=== PATIENT | female | born 1935 | race Caucasian/White ===

== ENCOUNTER 2016-12-25 00:13 | Observation (INO) ==
[2016-12-25] MEDS ORDERED: ASPIRIN 325 MG TABLET PO STA (00:34)
[2016-12-25] MEDS ORDERED: ASPIRIN 325 MG TABLET ONE (00:46)
[2016-12-25 01:11] LABS: Calcium 8.7 MG/DL (8.5-10.1); Osmolality,Calculated 285.3 MOS/KG (273-304); Potassium 4.3 MMOL/L (3.5-5.1)
[2016-12-25 01:16] LABS: Basophils % 0.3 % (0.0-0.8); Eosinophils # 0.2 10*3/uL (0.0-0.87); Eosinophils % 1.9 % (0.00-10.9); Hematocrit 35.3 VOL% (35.7-47.0); Immature Granulocytes % 0.3 %; Immature Granulocytes Absolute 0.03 #; Lymphocytes # 1.3 10*3/uL (1.4-4.0); Lymphocytes % 14.2 % (21.3-54.2); Mean Corpuscular Hemoglobin 31 PG (27-34); Mean Corpuscular Volume 91.9 FL (87-102); Mean Platelet Volume 10.4 FL (9.6-12.0); Monocytes # 1.2 10*3/uL (0.11-0.8); Monocytes % 13.4 % (1.7-12.7); Neutrophils # 6.2 10*3/uL (1.4-7.4); Neutrophils % 69.9 % (38.7-73.9); Platelet Count 231 T/CUMM (130-400); Red Blood Count 3.84 MC/CUMM (3.8-5.5); Red Cell Distribution Width 13.2 % (9.3-17.3); White Blood Count 8.9 T/CUMM (4-12)
--- NOTE | 2016-12-25 01:40 | Emergency Department Note ---
IMary Lou Mantricia, am scribing for, and in the presence of, Laron Restrepo MD 00:42. ILauro Kevin Lee, MD, personally performed the services described in this documentation, ascribed by Jean-Paul Barreto in my presence, and it is both accurate and complete . Arrival - Arrival Chief Complaint: Chest Pain Stated Complaint: chest pain ED Nursing Triage Note: pt presented to triage via w/c with c/o CP under L breast x 1 day. pt states worse when breathing in or coughing. rates 01/28 Mode of Arrival: Wheelchair Limitations: No Limitations Source: Patient Time Seen by Provider: 12/25/16 00:26 - History of Present Illness HPI Narrative: Pt is an 81 y/o white female arriving to ED via wheelchair with c/o left sided chest pain that onset today after lunch. Pt reports that she called her daughter when she experienced the pain because her daughter just had a pacemaker placed a few weeks ago. She reports that the pain worsens with deep breaths and while laying down and radiates to her neck. Pt denies having any recent falls to cause any injuries. Pt has a FHx of heart problems. She does not have a sat act instructor but states that she would like to be referred to her daughter's sat act instructor. Pt's PCP is Dr. Cedillo. At time of exam pt's heart rate is 70 with a blood pressure of 153/72. She does confirm that she is in pain at time of exam. No other complaints were reported to ED. Onset (ago): hour(s) Consistency: constant Severity: mild Date of Last Menstrual Period: hyst Allergies/Adverse Reactions: Allergies Allergy/AdvReac Type Severity Reaction Status Date / Time Sulfa (Sulfonamide Allergy RASH Verified 12/25/16 00:22 Antibiotics) Home Medications: Home Medications Medication Instructions Recorded Confirmed Type Cetirizine HCl [Cetirizine Tab] 1 tablet PO DAILY 11/14/14 12/25/16 History Gabapentin 2 tablet PO TID 11/14/14 12/25/16 History Potassium Chloride Cap/Tab [K Dur] 10 meq PO BID 11/14/14 12/25/16 History Aspirin [Ecotrin] 1 tablet PO DAILY 04/29/15 12/25/16 History Atorvastatin [Lipitor] 20 mg PO DAILY 04/29/15 12/25/16 History Citalopram [CeleXA] 1 tablet PO DAILY 04/29/15 12/25/16 History Gabapentin 1 tablet PO TID 04/29/15 12/25/16 History Levothyroxine Tab [Synthroid Tab] 37.5 mcg PO DAILY@0700 04/29/15 12/25/16 History Omeprazole [Prilosec] 40 mg PO DAILY 04/29/15 12/25/16 History traZODone [Desyrel] 50 mg PO BEDTIME 04/29/15 12/25/16 History Review of System - Review of System 12 point system: reviewed and no additional remarkable complaints except as stated - Review of System Constitutional: Absent: chills, diaphoresis, fever Eyes: Absent: pain Respiratory: Absent: cough Cardiovascular: Present: chest pain. Absent: palpitations, dyspnea on exertion Gastrointestinal: Absent: abdominal pain, nausea, vomiting, diarrhea Musculoskeletal: Absent: arm pain, back pain, leg pain, neck pain Medical,Surgical,& Family Hx - Medical History Psychological: History of: Depression Endocrine: History of: Thyroid Disorder Gastrointestinal: History of: Clostridium Difficile, GI Problems - Surgical History Cardiac Surgeries: Patient Denies: Cardiac Catheterization Thoracic Surgeries: Patient denies;: Organ Transplant HEENT Surgeries: Surgical HX of: Tonsilectomy & Adenoidectomy Abdominal Surgeries: Surgical HX of: Abdominal Surgery (LYSIS OF ADHESIONS) Reproductive Surgeries: Surgical HX of;: Hysterectomy Orthopedic Surgeries: Surgical HX of;: Orthopedic Surgery (BROKE LEG AND HAD PINS AND PLATE PLACED) - Family History Family History: Reports;: Family Cancer, Family Heart Disease, Family Stroke - Social History Smoking Status: Never smoker Frequency of Alcohol Use: None Type of Drug Use: None Exam Vital Signs: Vital Signs Temperature 97.6 F 12/25/16 00:30 Pulse Rate 66 12/25/16 00:45 Respiratory Rate 20 12/25/16 00:45 Blood Pressure 135/66 12/25/16 00:45 O2 Sat by Pulse Oximetry 97 12/25/16 00:45 - General General appearance: alert, in no apparent distress - Head Head exam: Present: atraumatic, normocephalic - Eye Eye exam: Present: normal appearance, PERRL, EOMI - ENT ENT exam: Present: normal exam - Neck Neck exam: Present: normal inspection, full ROM - Chest Chest inspection: Present: normal inspection, symmetric chest wall rise. Absent : tenderness, rash - Respiratory Respiratory exam: Present: normal lung sounds bilaterally - Cardiovascular Cardiovascular exam: Present: regular rate, normal rhythm, normal heart sounds - Abdominal Exam Abdominal exam: Present: soft. Absent: distention, tenderness, guarding, rebound - Extremities Exam Extremities exam: Present: normal inspection, full ROM - Neurological Exam Neurological exam: Present: alert, oriented X3, CN II-XII intact - Psychiatric Psychiatric exam: Present: normal affect, normal mood - Skin Skin exam: Present: warm, dry, intact, normal color Results - Labs CBC & BMP: 12/25/16 00:40 12/25/16 00:40 Lab Results: I have reviewed the patients labs - Diagnostic Findings Procedure: Chest x-ray: image reviewed by me (? small L pleural effusion) Disposition Clinical Impression: Chest pain Case discussed with: patient Disposition: Still a Patient Condition: Stable
[2016-12-25] MEDS ORDERED: ACETAMINOPHEN 325 MG TABLET PO PRN (02:02)
[2016-12-25] MEDS ORDERED: ONDANSETRON 4 MG/2 ML VIAL IV PRN (02:02)
[2016-12-25] MEDS ORDERED: ZALEPLON 5 MG CAPSULE PO PRN (02:02)
[2016-12-25] MEDS ORDERED: MORPHINE 2 MG/1 ML SYRINGE IV PRN (02:02)
--- NOTE | 2016-12-25 02:07 | Hospitalist History & Physical ---
Assessment and Plan (1) Chest pain Status: Acute Assessment and plan: Admit for observation. Repeat cardiac enzymes. Consult cardiology. Toradol for chest wall pain. Current Visit: Yes Qualifiers: Chest pain type: unspecified Qualified Code(s): R07.9 - Chest pain, unspecified History of Present Illness Chief complaint: chest pain History of present illness: Ms. Alberto is a 81 year old female presented to the emergency department today complaining of left-sided chest pain. Pain began 1 day ago. It is sharp in nature. It is located under the left breast. It radiated 8 out of 10. It takes her breath away. The pain does not radiate to any other location. There is no associated nausea or vomiting. There is no neck pain or arm pain. She has not had anything like this before. She denies any fall or trauma. The pain is localized under the left breast and is worsened with deep inspiration. Home Medications Medication Instructions Recorded Confirmed Type Cetirizine HCl [Cetirizine Tab] 1 tablet PO DAILY 11/14/14 12/25/16 History Gabapentin 2 tablet PO TID 11/14/14 12/25/16 History Potassium Chloride Cap/Tab [K Dur] 10 meq PO BID 11/14/14 12/25/16 History Aspirin [Ecotrin] 1 tablet PO DAILY 04/29/15 12/25/16 History Atorvastatin [Lipitor] 20 mg PO DAILY 04/29/15 12/25/16 History Citalopram [CeleXA] 1 tablet PO DAILY 04/29/15 12/25/16 History Gabapentin 1 tablet PO TID 04/29/15 12/25/16 History Levothyroxine Tab [Synthroid Tab] 37.5 mcg PO DAILY@0700 04/29/15 12/25/16 History Omeprazole [Prilosec] 40 mg PO DAILY 04/29/15 12/25/16 History traZODone [Desyrel] 50 mg PO BEDTIME 04/29/15 12/25/16 History Allergies Allergy/AdvReac Type Severity Reaction Status Date / Time Sulfa (Sulfonamide Allergy RASH Verified 12/25/16 00:22 Antibiotics) Medical,Surgical,& Family Hx - Medical History Psychological: History of: Depression Endocrine: History of: Thyroid Disorder Gastrointestinal: History of: Clostridium Difficile, GI Problems - Surgical History Cardiac Surgeries: Patient Denies: Cardiac Catheterization Thoracic Surgeries: Patient denies;: Organ Transplant HEENT Surgeries: Surgical HX of: Tonsilectomy & Adenoidectomy Abdominal Surgeries: Surgical HX of: Abdominal Surgery (LYSIS OF ADHESIONS) Reproductive Surgeries: Surgical HX of;: Hysterectomy Orthopedic Surgeries: Surgical HX of;: Orthopedic Surgery (BROKE LEG AND HAD PINS AND PLATE PLACED) - Family History Family History: Reports;: Family Cancer, Family Heart Disease, Family Stroke - Social History Smoking Status: Never smoker Frequency of Alcohol Use: None Type of Drug Use: None Marital Status: Lives With:: Alone Functional capacity: independent ambulation 12 point system: reviewed and no additional remarkable complaints except as stated Exam - Constitutional Vitals: Period Temp Pulse Resp BP Sys/Yao Pulse Ox Last 24 Hr 97.6 F-97.6 F 65-72 16-20 135-153/54-72 97-99 Exam: Constitutional System: No distress. No tremulousness. Head: Normocephalic, atraumatic. Ears, Nose and Throat System: No pain or tenderness. No epistaxis or discharge Eyes System: Pupils equal, round, and reactive. Extraocular muscles intact. Neck: Supple, without adenopathy, No jugular venous distention. No thyromegaly, neck mass, or prior surgery apparent. Respiratory System: Chest clear to auscultation. Pain reproducible with deep inspiration Cardiovascular System: Heart with regular rate and rhythm. Systolic ejection murmur noted. GI System: Abdomen soft, nontender. Normo active bowel sounds present. Musculoskeletal System: limbs with no pedal edema. Full distal pulses. Neurological System: No discernable sensory deficit. No aphasia Psychiatric System: Conversation is rational Results - Labs CBC & BMP: 12/25/16 00:40 12/25/16 00:40 Lab Results: I have reviewed the past 24 hour labs - Diagnostic Findings Procedure: Chest x-ray: image reviewed by me
--- NOTE | 2016-12-25 02:29 | EKG Report ---
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
[2016-12-25] MEDS ORDERED: MORPHINE 2 MG/1 ML SYRINGE IV STA (02:33)
[2016-12-25] MEDS ORDERED: ONDANSETRON 4 MG/2 ML VIAL IV STA (02:33)
[2016-12-25] MEDS ORDERED: KETOROLAC 30 MG/1 ML VIAL IV ONE (02:55)
[2016-12-25 05:46] LABS: Risk Ratio 2.46; Thyroid Stimulating Hormone 1.64 uIU/ml (0.358-3.74); VLDL CHOLESTEROL 10.4 MG/DL
[2016-12-25 06:15] LABS: Troponin I Only 0.021 NG/ML (0.00-0.045)
[2016-12-25] MEDS: LEVOTHYROXINE 75 MCG TABLET PO SCH (06:26)
--- NOTE | 2016-12-25 07:10 | XRay Report ---
2 view chest. Indication: Chest pain. Comparison: November 14, 2014. The heart is upper limits of normal in size. There is uncoiling of the thoracic aorta, which often indicates chronic hypertension. There is a moderate hiatal hernia. The pulmonary vasculature is normal. There is atelectasis and pleural effusion at the left lung base. The right lung is clear. The osseous structures are diffusely demineralized. There is exaggerated kyphosis of the thoracic spine. There is scoliosis and degenerative change of the spinal column. Impression: 1. Left basilar atelectasis and pleural effusion. 2. Moderate hiatal hernia. PROCEDURE INTERPRETED AT [facility] DEPARTMENT OF RADIOLOGY Final Report Signed by: Dr. Mckenna Alatorre
--- NOTE | 2016-12-25 08:08 | EKG Report ---
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
[2016-12-25 08:51] LABS: Troponin I Only 0.028 NG/ML (0.00-0.045)
--- NOTE | 2016-12-25 08:52 | Cardiology Consult Note ---
Assessment and Plan - Time spent with patient Time spent with patient: Greater than 30 minutes (1) Dyslipidemia Status: Chronic Assessment and plan: SEE PLAN OF CARE LISTED BELOW Current Visit: Yes (2) Edema Status: Chronic Assessment and plan: SEE PLAN OF CARE LISTED BELOW Current Visit: Yes (3) Chest pain Status: Acute Assessment and plan: SEE PLAN OF CARE LISTED BELOW Current Visit: Yes Qualifiers: Chest pain type: unspecified Qualified Code(s): R07.9 - Chest pain, unspecified History of Present Illness - Data of Consult Patient: new to practice Consult date: 12/25/16 Requesting Physician: Leander King - Consult Narrative Reason for consult: chest pain History of present illness: SHOP LEAD: (NEW) DR. GRESHAM Ms. Alberto, 81WF, with risk factors significant for: advanced age, dyslipidemia and sedentary lifestyle. Admitted December 25, 2016 with complaints of left-sided chest pain. Chest discomfort began Sunday afternoon, located under the left breast and left rib cage. There is no radiation, nausea, vomiting or diaphoresis associated with the chest discomfort. It is described as "sharp" and occurs when taking a deep breath and/or palpating the left rib cage area. Rates discomfort at its worst as a 7 on a scale of 1-10. She has had no recent injuries or falls. Cardiac biomarkers are negative, EKG reveals normal sinus rhythm. Chest x-ray revealed left basilar atelectasis and pleural effusion. Denies recent fevers, chills or cough. Patient has been fairly active into the past 4 years. 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 Since that time, she has found herself to be very deconditioned and feels as if she is finally beginning to improve. She was picking up pecans this season and can do so without having chest pain, heaviness or tightness. Echocardiogram has been ordered. Will continue to cycle cardiac biomarkers, monitor telemetry. Adding d-dimer to labs this morning. Will add venous ultrasound to lower extremities as she occasionally has left ankle swelling and mild tenderness to palpation today. Treat her musculoskeletal chest pain with NSAIDs. Add incentive spirometry. Given her advanced age, she may need to be considered for outpatient stress testing at discharge. Will further discuss with Dr. Gresham and await additional recommendations. ASSESSMENT/PLAN: 1. CHEST PAIN - Chest pain is reproducible with deep breath, movement and palpation. Will treat with NSAIDs, check echocardiogram, d-dimer and encourage incentive spirometry. Follow chest x-ray. 2. DYSLIPIDEMIA - LDL 77. With the stated risk factors listed above, she is at goal. Continue Atorvastatin 3. EDEMA - venous US BLE extremity today. CC: Leander King MD - Home Medications and Allergies Home Medications: Home Medications Medication Instructions Recorded Confirmed Type Cetirizine HCl [Cetirizine Tab] 10 mg PO DAILY 11/14/14 12/25/16 History Potassium Chloride Cap/Tab [K Dur] 10 meq PO BID 11/14/14 12/25/16 History Aspirin [Ecotrin] 81 mg PO DAILY 04/29/15 12/25/16 History Atorvastatin [Lipitor] 20 mg PO DAILY 04/29/15 12/25/16 History Citalopram [CeleXA] 20 mg PO DAILY 04/29/15 12/25/16 History Gabapentin 300 mg PO TID 04/29/15 12/25/16 History Levothyroxine Tab [Synthroid Tab] 37.5 mcg PO DAILY@0700 04/29/15 12/25/16 History Omeprazole [Prilosec] 40 mg PO DAILY 04/29/15 12/25/16 History traZODone [Desyrel] 50 mg PO BEDTIME 04/29/15 12/25/16 History Allergies/Adverse Reactions: Allergies Allergy/AdvReac Type Severity Reaction Status Date / Time Sulfa (Sulfonamide Allergy RASH Verified 12/25/16 00:22 Antibiotics) Review of systems: REVIEW OF SYSTEMS: - Constitutional Constitutional: Absent: syncope, anorexia, night sweats - EENT Eyes: Absent: blurry vision, loss of vision, diplopia Ears: Absent: decreased hearing, ear pain, ear discharge - Cardiovascular Cardiovascular: Present: chest pain with deep breath, movement and palpation. Occasional left lower extremity swelling, primarily around the ankle. Denies dyspnea on exertion, palpitations. - Respiratory Respiratory: Denies: BOUCHER, cough. Absent: wheezing, hemoptysis, change in phlegm color - Gastrointestinal Gastrointestinal: Denies: constipation. Absent: abdominal pain, hematemesis, hematochezia, melena, change in bowel habits, nausea - Genitourinary Genitourinary: Absent: difficulty urinating, dysuria, urinary hesitancy, flank pain - Musculoskeletal Musculoskeletal: Present: back pain Absent: joint swelling, muscle cramps, muscle weakness - Neurological Neurological: Present: Poor gait with frequent falls due to left knee pain. Absent: dizziness, hemiparesis - Psychiatric Psychiatric: Absent: anxiety, depression, difficulty concentrating - Endocrine Endocrine: Present: fatigue. Absent: cold intolerance, heat intolerance, polyuria, polyphagia, polydipsia - Hematologic/Lymphatic Hematologic/Lymphatic: Present: easy bruising. Absent: easy bleeding -Integumentary Integumentary: Absent: lesions, rashes, skin breakdown Medical,Surgical,& Family Hx - Medical History Cardio: No history of: Cardiac Dysrhythmia, CAD, Hypertension, [place], Cardiovascular Problems Psychological: History of: Depression Endocrine: History of: Thyroid Disorder Gastrointestinal: History of: Clostridium Difficile, GI Problems - Surgical History Cardiac Surgeries: Patient Denies: Cardiac Catheterization Thoracic Surgeries: Patient denies;: Organ Transplant HEENT Surgeries: Surgical HX of: Tonsilectomy & Adenoidectomy Abdominal Surgeries: Surgical HX of: Abdominal Surgery (LYSIS OF ADHESIONS) Reproductive Surgeries: Surgical HX of;: Hysterectomy Orthopedic Surgeries: Surgical HX of;: Orthopedic Surgery (BROKE LEG AND HAD PINS AND PLATE PLACED) - Family History Family History: Reports;: Family Cancer (mother-breast CA, lung CA), Family Heart Disease, Family Stroke - Social History Smoking Status: Never smoker Have you smoked in the last 12 months: No Frequency of Alcohol Use: None Type of Drug Use: None Marital Status: Lives With:: Alone Functional capacity: independent ambulation Physical Examination Vital Signs Temp Pulse Resp BP Pulse Ox 97.6 F 72 16 141/54 97 12/25/16 00:18 12/25/16 00:18 12/25/16 00:18 12/25/16 00:18 12/25/16 00:18 Exam: General: [Appears well with no apparent distress.] [Pleasant and cooperative. ] [Appears comfortable.] HEENT: [PERRL, normocephalic, atraumatic. Mucous membranes moist. No jaundice noted. Conjunctiva moist and clear, sclerae anicteric] Neck: No JVD/HJR, no thyromegaly or lymphadenopathy noted. No carotid bruit appreciated Cardiac: [Regular rate and rhythm.] [No obvious murmur rub or gallop.] Left chest and flank with significant pain to light palpation. Lungs: [Clear to auscultation without accessory muscle use to assist the respiratory pattern.] Using oxygen intermittently Abdomen: Soft, bowel sounds normoactive. Nontender and nondistended. No abdominal bruit or thrill noted. No masses noted. Musculoskeletal: No fluid collection. Decreased range of motion is noted. Extremities: No clubbing, cyanosis noted. [ Upper extremity pulses 2+. Lower extremity pulses 2+. Tenderness to touch left lower extremity primarily in the ankle region. Trace edema left ankle. Capillary refill less than 3 seconds. Skin: No unusual lesions or rashes. No skin breakdown appreciated. Neuro: Awake, alert and oriented 3. Moves all extremities well without hemiparesis or paralysis. No essential tremor is appreciated. Result/EKG - Labs CBC & BMP: 12/25/16 00:40 12/25/16 00:40 Lab Results: I have reviewed the past 24 hour labs Labs: Laboratory Results - last 24 hr 12/25/16 12/25/16 12/25/16 00:40 00:40 00:40 WBC 8.9 RBC 3.84 Hgb 12.0 Hct 35.3 L MCV 91.9 MCH 31 MCHC 34.0 RDW 13.2 Plt Count 231 MPV 10.4 Neut % (Auto) 69.9 Lymph % (Auto) 14.2 L [place] % (Auto) 13.4 H Eos % (Auto) 1.9 Baso % (Auto) 0.3 Neut # (Auto) 6.2 Lymph # (Auto) 1.3 L [place] # (Auto) 1.2 H Eos # (Auto) 0.2 Baso # (Auto) 0.0 Immature Gran % 0.3 Nucleated RBC % 0.0 Immature Gran # 0.03 Nucleated RBCs # 0.00 Immature Plt Fraction 0.0 D-Dimer, Quantitative Sodium 141 Potassium 4.3 Chloride 109 H Carbon Dioxide 28 Anion Gap 8.3 BUN 23 H Creatinine 0.80 GFR Calculation 65 BUN/Creatinine Ratio 28.00 H Glucose 108 H Hemoglobin A1c Calculated Osmolality 285.3 Calcium 8.7 Magnesium Total Creatine Kinase CK-MB (CK-2) Troponin I < 0.015 B-Natriuretic Peptide Triglycerides Cholesterol LDL Cholesterol VLDL Cholesterol HDL Cholesterol Heart Disease Risk Ratio TSH 3rd Generation 12/25/16 12/25/16 12/25/16 00:40 00:40 04:16 WBC RBC Hgb Hct MCV MCH MCHC RDW Plt Count MPV Neut % (Auto) Lymph % (Auto) [place] % (Auto) Eos % (Auto) Baso % (Auto) Neut # (Auto) Lymph # (Auto) [place] # (Auto) Eos # (Auto) Baso # (Auto) Immature Gran % Nucleated RBC % Immature Gran # Nucleated RBCs # Immature Plt Fraction D-Dimer, Quantitative Sodium Potassium Chloride Carbon Dioxide Anion Gap BUN Creatinine GFR Calculation BUN/Creatinine Ratio Glucose Hemoglobin A1c Calculated Osmolality Calcium Magnesium 2.0 Total Creatine Kinase 121 CK-MB (CK-2) 1.7 Troponin I 0.021 B-Natriuretic Peptide 102 H Triglycerides Cholesterol LDL Cholesterol VLDL Cholesterol HDL Cholesterol Heart Disease Risk Ratio [facility] 3rd Generation 12/25/16 12/25/16 12/25/16 04:16 04:16 06:40 WBC RBC Hgb Hct MCV MCH MCHC RDW Plt Count MPV Neut % (Auto) Lymph % (Auto) [place] % (Auto) Eos % (Auto) Baso % (Auto) Neut # (Auto) Lymph # (Auto) [place] # (Auto) Eos # (Auto) Baso # (Auto) Immature Gran % Nucleated RBC % Immature Gran # Nucleated RBCs # Immature Plt Fraction D-Dimer, Quantitative Sodium Potassium Chloride Carbon Dioxide Anion Gap BUN Creatinine GFR Calculation BUN/Creatinine Ratio Glucose Hemoglobin A1c 5.5 Calculated Osmolality Calcium Magnesium Total Creatine Kinase CK-MB (CK-2) Troponin I 0.027 B-Natriuretic Peptide Triglycerides 52 Cholesterol 165 LDL Cholesterol 77.0 VLDL Cholesterol 10.4 HDL Cholesterol 67 H Heart Disease Risk Ratio 2.46 [facility] 3rd Generation 1.640 12/25/16 08:04 WBC RBC Hgb Hct MCV MCH MCHC RDW Plt Count MPV Neut % (Auto) Lymph % (Auto) [place] % (Auto) Eos % (Auto) Baso % (Auto) Neut # (Auto) Lymph # (Auto) [place] # (Auto) Eos # (Auto) Baso # (Auto) Immature Gran % Nucleated RBC % Immature Gran # Nucleated RBCs # Immature Plt Fraction D-Dimer, Quantitative <= 0.5 Sodium Potassium Chloride Carbon Dioxide Anion Gap BUN Creatinine GFR Calculation BUN/Creatinine Ratio Glucose Hemoglobin A1c Calculated Osmolality Calcium Magnesium Total Creatine Kinase CK-MB (CK-2) Troponin I B-Natriuretic Peptide Triglycerides Cholesterol LDL Cholesterol VLDL Cholesterol HDL Cholesterol Heart Disease Risk Ratio [facility] 3rd Generation - Diagnostic Findings Procedure: Chest x-ray: report reviewed by me - EKG EKG results: interpreted by me EKG shows: sinus rhythm
[2016-12-25] MEDS ORDERED: ATORVASTATIN 20 MG TABLET PO SCH ×2 (09:00→21:00)
[2016-12-25] MEDS ORDERED: PANTOPRAZOLE 40 MG TABLET PO SCH (09:00)
[2016-12-25] MEDS ORDERED: GABAPENTIN 100 MG CAPSULE PO SCH (09:00)
--- NOTE | 2016-12-25 09:31 | Event Note ---
Patient seen interviewed and examined and chart has been reviewed. This patient was admitted area this morning by my night correlated. Presented to the hospital with chest pain. Faced troponin was less than 0.015 second 1 was 0.02. Patient has been ordered an echocardiogram that is in process of being done now. She still acknowledging some chest pain especially with coughing and deep breathing. No palpitation reproducible pain. 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 Her heart score is significant. General assessment she is awake alert answers questions appropriately HEENT unremarkable Neck: Unremarkable no JVD supple neck Lungs: Clear to auscultation no splinting Heart: Regular tones no gallops no obvious murmur Abdomen: Benign Musculoskeletal: Unremarkable Impression: Patient admitted to the hospital with chest pain rule out myocardial infarction. Because of a trend up on the 2 troponins will get a for troponin. Proceed with echocardiogram. Cardiology consultation is ordered on the note. There is no charge for this assessment patient was admitted this morning.
--- NOTE | 2016-12-25 09:50 | Ultrasound Report ---
Bilateral lower extremity venous Doppler with lenz scale, Spectral Doppler and color-flow analysis performed and interpreted. Indication: Lower extremity pain and swelling Scanning over both common femoral veins, superficial femoral veins, greater saphenous veins and popliteal veins demonstrates normal compressibility, color flow, and augmentation. Impression: No evidence of DVT seen in either lower extremity. Bilateral lower extremity venous Doppler with lenz scale, Spectral Doppler and color-flow analysis performed and interpreted. PROCEDURE INTERPRETED AT [facility] DEPARTMENT OF RADIOLOGY Final Report Signed by: Dr. Mckenna Alatorre
[2016-12-25] MEDS: KETOROLAC 15 MG/1 ML VIAL IV SCH ×2 (10:11→15:05)
[2016-12-25] MEDS: ENOXAPARIN 40 MG/0.4 ML SYRINGE SUBCUT SCH (10:11)
[2016-12-25] MEDS: POTASSIUM CHLORIDE 10 MEQ TABLET PO SCH ×2 (10:12→20:27)
[2016-12-25] MEDS: GABAPENTIN 100 MG CAPSULE PO SCH ×3 (10:12→20:27)
[2016-12-25] MEDS: CETIRIZINE 10 MG TABLET PO SCH (10:12)
[2016-12-25] MEDS: CITALOPRAM 20 MG TABLET PO SCH (10:12)
[2016-12-25] MEDS: ASPIRIN EC 81 MG TABLET PO SCH (10:13)
[2016-12-25] MEDS: PANTOPRAZOLE 40 MG TABLET PO SCH (10:13)
[2016-12-25] MEDS ORDERED: METOPROLOL TARTRATE 25 MG TABLET PO SCH (12:30)
--- NOTE | 2016-12-25 12:34 | ECHO Report ---
Kaye Alberto Exam Date: 12/25/2016 08:10 Referring Physician: Technologist: Shayy Patel LRNICHOLAS Age: 81 Ht (in): 65 Wt (lb): 128 Gender: F Exam Location: [facility] Echo Indications: chest pain, hypokalemia, gastroenteritis, thyroid disorder BP: 138 / 63 HR: 60 Rhythm: Sinus Technical Quality: IMPRESSIONS Normal left ventricular cavity size. No hypertrophy. Normal systolic function. Left ventricular ejection fraction is estimated at 60 %. Grade 2 diastolic dysfunction. Mild biatrial enlargement. Mildly thickened mitral valve, with mild eccentric regurgitation. Moderate tricuspid regurgitation, with normal pulmonary pressure. MEASUREMENTS (Male / Female) Normal Values 2D ECHO LV Diastolic Diameter PLAX 3.3 cm 4.2 - 5.9 / 3.9 - 5.3 cm LV Systolic Diameter PLAX 1.9 cm LV Fractional Shortening PLAX 43.3 % IVS Diastolic Thickness 0.8 cm 0.6 - 1.0 / 0.6 - 0.9 cm LVPW Diastolic Thickness 0.8 cm 0.6 - 1.0 / 0.6 - 0.9 cm Aortic Root Diameter 2.4 cm LA Systolic Diameter LX 2.8 cm 3.0 - 4.0 / 2.7 - 3.8 cm DOPPLER TR Peak Velocity 273.0 cm/s TR Peak Gradient 29.8 mmHg FINDINGS Left Ventricle Normal left ventricular cavity size. No hypertrophy. Normal systolic function. Left ventricular ejection fraction is estimated at 60 %. Grade 2 diastolic dysfunction. Right Ventricle Normal right ventricular size. Right Atrium Mild right atrial enlargement. Left Atrium Mild left atrial enlargement. Mitral Valve Mildly thickened mitral valve with mild mitral eccentric regurgitation. Aortic Valve The aortic valve is trileaflet and has normal motion. Trace insufficiency, no stenosis. Tricuspid Valve Morphologically normal tricuspid valve. Moderate tricuspid valve regurgitation. Tricuspid regurgitation velocities suggest a PAP of 30 mmHg + RAP. Pulmonic Valve Morphologically normal pulmonic valve. Trace pulmonary valve regurgitation. Pericardium No pericardial effusion. Aorta Normal size aortic root and proximal ascending aorta. Jeffrey Gresham (Electronically Signed) Final Date: 25 December 2016 12:33
[2016-12-25 14:36] LABS: Troponin I Only 0.025 NG/ML (0.00-0.045)
[2016-12-25] MEDS ORDERED: traZODone 50 MG TABLET PO SCH (21:00)
[2016-12-26] MEDS: KETOROLAC 15 MG/1 ML VIAL IV SCH ×3 (00:05→08:56)
[2016-12-26] MEDS: LEVOTHYROXINE 75 MCG TABLET PO SCH (06:09)
[2016-12-26 08:10] VITALS: BP 185/79
[2016-12-26] MEDS: CITALOPRAM 20 MG TABLET PO SCH (08:56)
[2016-12-26] MEDS: ENOXAPARIN 40 MG/0.4 ML SYRINGE SUBCUT SCH (08:56)
[2016-12-26] MEDS: GABAPENTIN 100 MG CAPSULE PO SCH (08:56)
[2016-12-26] MEDS: ASPIRIN EC 81 MG TABLET PO SCH (08:57)
[2016-12-26] MEDS: POTASSIUM CHLORIDE 10 MEQ TABLET PO SCH (08:57)
[2016-12-26] MEDS: PANTOPRAZOLE 40 MG TABLET PO SCH (08:57)
[2016-12-26] MEDS: CETIRIZINE 10 MG TABLET PO SCH (08:57)
[2016-12-26] MEDS ORDERED: HYDROCORTISONE 100 MG VIAL IV ONE (09:50)
--- NOTE | 2016-12-26 10:00 | Discharge Summary ---
Hospital Course - Hospital Course Hospital Course: 81-year-old female, with recent upper respiratory infection, then she developed persistent left-sided chest pain, worse with inspiration. Mild pleuritic rub on left side. Normal EKG, normal cardiac biomarkers. Echo shows a normal systolic function, grade 2 diastolic dysfunction, no pericardial effusion. D- dimer negative, DVT study negative. History of recurrent C. difficile. Clinical picture is suggestive of pleuritis. There appears to be small effusion on the left side. This is despite that she uses Aleve on a regular basis. She was treated in hospital with intravenous Solu-Cortef with complete resolution of her chest pain. She had been seen in consultation by cardiology who recommended no further cardiac evaluation. Diagnosis - Discharge Diagnosis (1) Pleurisy with effusion Status: Acute (2) Chest pain Status: Acute Discharge Plan - Discharge Data Condition at Discharge: Stable Discharge Diet: advance to your usual diet Activity: resume usual activities as tolerated Hygiene: no restrictions Driving: no restrictions Contact your physician if you experience:: fever over 101, Shortness of breath - Discharge Medications No Action Cetirizine HCl [Cetirizine Tab] 10 mg PO DAILY Potassium Chloride Cap/Tab [K Dur] 10 meq PO BID Gabapentin 300 mg PO TID traZODone [Desyrel] 50 mg PO BEDTIME Atorvastatin [Lipitor] 20 mg PO DAILY Omeprazole [Prilosec] 40 mg PO DAILY Levothyroxine Tab [Synthroid Tab] 37.5 mcg PO DAILY@0700 Citalopram [CeleXA] 20 mg PO DAILY Aspirin [Ecotrin] 81 mg PO DAILY - Follow Up or Referral - Forms/Instructions Exam - Constitutional Vitals: Period Temp Pulse Resp BP Sys/Yao Pulse Ox Last 24 Hr 96.2 F-98.4 F 54-67 16-20 117-185/56-81 96-98 General appearance: normal weight, no acute distress - Head Head exam: Present: normal inspection - Neck Neck exam: Present: normal inspection - Respiratory Respiratory exam: Present: clear to auscultation bilaterally - Cardiovascular Cardiovascular exam: Present: regular rate and rhythm - GI/Abdominal GI/Abdominal exam: Present: normal bowel sounds, soft, other (Nontender with no palpable masses or hepatosplenomegaly.) - Extremities Exam Extremities exam: Present: normal inspection - Back Exam Back exam: Present: normal inspection - Neurological Exam Neurological exam: Present: alert, oriented X3 - Psychiatric Psychiatric exam: Present: normal affect, normal mood - Skin Skin exam: Present: normal color, warm Discharge Results Labs on day of discharge: Labs from last 24 hours 12/25/16 14:01 Total Creatine Kinase 91 CK-MB (CK-2) 1.8 Troponin I 0.025 - Imaging and Cardiology Procedure: Chest x-ray: image reviewed by me (small left pleural effusion) DS: Provider Date of admission: 12/25/16 02:02 Primary care physician: Minesh Smith MD Attending physician on admission: Soha Galarza MD Consults: 12/25/16 02:02 Consult to Physician [CONS] Routine Comment: chest pain Consulting Provider: Cardiology - [facility] Person Notified: [email or web address] Date Notified: 12/25/16 Time Notified: 07:35 Discharging clinician: Pete Mojica
== END 2016-12-26 12:57 | disposition home or self-care (01) ==
LOC: N.ED 00:13 → N.EDINP 00:13 → SUATTDRO 02:02 → N.TELES 02:39
PROVIDERS: ADMIT Family Medicine